=== PATIENT | female | born 2005 | race Caucasian/White ===

== ENCOUNTER 2025-09-01 15:36 | Inpatient (IN) | payer OTHER ==
[~2025-09-01] VITALS: Ht 152.4 cm; Wt 29.5 kg
[~2025-09-01 15:36] MED LIST: ACET-1439 GT; ACET160E3 GT; AMOX600S51 PO; ATRO0.06; B-650TAB2 GT; BACL10TA GT; BACL10TA2; BACL1TAB8 GT; BACLOFEN GT; BENA25CA PO; CITR1SOL PO; DULC10SU2 PR; DULCOLAX PR; KEPPRA; KEPPRA GT; LEVA0.3131; LEVA0.3131 INH; LEVA0.3131 NEB; LEVA1.2525 INH; LEVE15SO GT; LORA2CON5 GT; ONDA-228 PO; ORAPRED GT; OSEL6SUSP GT; OSEL6SUSP PO; POLYBTL GT; PRED15SO3; PYRI50TA8 GT; TYLENOL ELIXIR; XOPE0.63 INH; ZITH100S; ZITH100S OR; ZITH200S GT; clobazam GT
[2025-09-01] MEDS: NS (Normal Saline) 0.9% 1,000 ML IV ONE ×2 (16:15→17:43)
[2025-09-01 16:18] LABS: VENOUS BASE EXCESS -1.6 (-2.0-2.0); VENOUS HCO3 22.3 MMOL/L (23.0-27.0); VENOUS O2 SATURATION 96.2 % (60.0-80.0); VENOUS PARTIAL PRESSURE CO2 35.3 mmHg (38.0-50.0); VENOUS PARTIAL PRESSURE O2 83.6 mmHg (30.0-50.0); VENOUS PH 7.418 UNITS (7.330-7.430); VENOUS STANDARD HCO3 23.1 MMOL/L; VENOUS TOTAL CO2 23.4 MMOL/L (24.0-28.0)
[2025-09-01 16:26] LABS: BASO # 0.1 10^3/uL (0.0-0.2); BASO % 0.5 % (0.0-1.0); EOS # 0.2 10^3/uL (0.0-0.5); EOS % 0.7 % (0.0-3.0); LYMPH # 0.8 10^3/uL (1.5-5.0); LYMPH % 3.2 % (24.0-44.0); MONO # 1.4 10^3/uL (0.0-0.8); MONO % 5.2 % (2.0-8.0); NEUTROPHILS # 23.6 10^3/uL (1.5-8.5); NEUTROPHILS % 89.9 % (36.0-66.0); PLATELET COUNT, AUTOMATED 483 10^3/uL (150-450)
[2025-09-01 16:46] LABS: C REACTIVE PROTEIN QUANTITATIV 0.57 MG/DL (<1.0)
[2025-09-01 16:58] LABS: ALT/SGPT 28 U/L (7.0-40); AST/SGOT 76 U/L (<34); CALCIUM LEVEL 9.8 MG/DL (8.5-10.1); CARBON DIOXIDE LEVEL 24 MMOL/L (20-31); CHLORIDE LEVEL 100 MMOL/L (98-107); CREATININE FOR GFR 0.45 MG/DL (0.55-1.30); GLOMERULAR FILTRATION RATE > 90.0 (>60); POTASSIUM SERUM 4.9 MMOL/L (3.5-5.1); SODIUM LEVEL 138 MMOL/L (136-145)
[2025-09-01] MEDS ORDERED: DANT50CA PO (17:08)
[2025-09-01] MEDS: BACLOFEN 10 MG TAB PO ONE (17:15)
[2025-09-01] MEDS ORDERED: DANTROLENE 25 MG CAP PO SCH (17:15)
[2025-09-01] MEDS ORDERED: levETIRAcetam ORAL SOLUTION 500 MG/5 ML UDC GT SCH (17:15)
[2025-09-01 17:19] LABS: KETONE, URINE AUTO RFX NEGATIVE (NEGATIVE); LEUKOCYTE ESTERASE UR AUTO RFX NEGATIVE (NEGATIVE); MUCUS, URINE RFX SMALL (NEGATIVE); NITRITE, URINE AUTO RFX NEGATIVE (NEGATIVE); RBC, URINE AUTO RFX 36 /HPF (0-3); SQUAM EPITHELIAL CELL UR AURFX 1 /HPF (0-6); WBC, URINE AUTO RFX 2 /HPF (0-3)
[2025-09-01] MEDS: ACETAMINOPHEN *IV* 500 MG in IV 1 EA IV ONE (17:42)
[2025-09-01] MEDS: DANTROLENE 25 MG CAP GT SCH (17:48)
[2025-09-01] MEDS: BACLOFEN 10 MG TAB GT SCH (17:48)
[2025-09-01] MEDS: levETIRAcetam ORAL SOLUTION 500 MG/5 ML UDC GT SCH (17:49)
[2025-09-01] MEDS: IBUPROFEN 100 MG 5 ML SUSP UDC DYE FREE PO ONE (17:52)
[2025-09-01] MEDS: PIPERACILLIN/TAZOBACTAM SOD 3.375 GM in DEXTROSE 5% (D5W) ADV/MINI-BAG 50 ML IV ONE (17:52)
[2025-09-01] MEDS ORDERED: [UNRECOGNIZED DRUG - CODE] GT (18:46)
[2025-09-01] MEDS ORDERED: MED REC COMMENT (18:46)
[2025-09-01] MEDS ORDERED: MIDA5SPR NS (18:48)
[2025-09-01] MEDS ORDERED: HOME MED LIST COMPLETE! XX SCH (18:50)
[2025-09-01] MEDS ORDERED: ACETAMINOPHEN 325 MG/10.15 ML UDC GT PRN (19:00)
[2025-09-01] MEDS ORDERED: MOM 30 ML SUSPENSION UDC PO PRN (19:00)
[2025-09-01] MEDS: NS (Normal Saline) 0.9% 1,000 ML IV SCH (19:48)
[2025-09-01] MEDS: DOXYCYCLINE HYCLATE 100 MG in DEXTROSE 5% (D5W) MINI-BAG PLU 100 ML IV SCH (21:35)
[2025-09-02 00:33] VITALS: BP 128/65; TEMP 97.8; O2SAT 99
[2025-09-02] MEDS: PIPERACILLIN/TAZOBACTAM SOD 3.375 GM in DEXTROSE 5% (D5W) ADV/MINI-BAG 50 ML IV SCH (01:21)
[2025-09-02 03:28] VITALS: BP 128/77; TEMP 100.1; O2SAT 98
[2025-09-02 06:00] VITALS: TEMP 100
[2025-09-02 06:10] LABS: PLATELET COUNT, AUTOMATED 320 10^3/uL (150-450)
[2025-09-02 06:38] LABS: ALT/SGPT 33 U/L (7.0-40); AST/SGOT 72 U/L (<34); CALCIUM LEVEL 9.2 MG/DL (8.5-10.1); CARBON DIOXIDE LEVEL 20 MMOL/L (20-31); CHLORIDE LEVEL 108 MMOL/L (98-107); CREATININE FOR GFR 0.34 MG/DL (0.55-1.30); GLOMERULAR FILTRATION RATE > 90.0 (>60); MAGNESIUM LEVEL 1.9 MG/DL (1.8-2.4); POTASSIUM SERUM 4.1 MMOL/L (3.5-5.1); SODIUM LEVEL 143 MMOL/L (136-145)
[2025-09-02 07:37] VITALS: BP 102/54; TEMP 99.7; O2SAT 92
[2025-09-02] MEDS ORDERED: GLUCAGON INJ 1 MG VIAL SC PRN (08:45)
[2025-09-02] MEDS ORDERED: DEXTROSE 50% 50 ML SYRINGE IV PRN (08:45)
[2025-09-02] MEDS ORDERED: GLUCOSE 4 GM CHEW PO PRN (08:45)
[2025-09-02] MEDS: BISACODYL 10 MG SUPP PR SCH (09:00)
[2025-09-02] MEDS ORDERED: ISOVUE-370 76% 100 ML VIAL As Ordered ONE (09:01)
[2025-09-02] MEDS: D5W/0.45% SODIUM CHLORIDE 1,000 ML IV SCH (10:34)
[2025-09-02] MEDS: levETIRAcetam ORAL SOLUTION 500 MG/5 ML UDC GT SCH (10:56)
[2025-09-02] MEDS: DANTROLENE 25 MG CAP GT SCH (10:57)
[2025-09-02] MEDS: SENNOSIDES/DOCUSATE SODIUM 8.6 MG/50MG TAB GT SCH (10:57)
[2025-09-02] MEDS: BACLOFEN 10 MG TAB GT SCH (10:57)
[2025-09-02] MEDS: ENOXAPARIN 30 MG/0.3 ML SYRINGE (J1650 PER 10MG) SC SCH (10:58)
[2025-09-02 11:27] VITALS: BP 113/66; TEMP 100.1; O2SAT 97
[2025-09-02 15:36] LABS: CA 125 37.0 U/ML (<35)
[2025-09-02] MEDS: LACOSAMIDE 10 MG/ML 20 ML VIAL IV SCH (17:32)
[2025-09-02 19:41] VITALS: BP 123/65; TEMP 99.4; O2SAT 95
[2025-09-03] VITALS (7 sets, daily range): BP systolic 99–120; BP diastolic 56–76; TEMP 97.5–98.3; O2SAT 95–98
[2025-09-03 06:14] LABS: BASO # 0.1 10^3/uL (0.0-0.2); BASO % 1.1 % (0.0-1.0); EOS # 0.7 10^3/uL (0.0-0.5); EOS % 9.6 % (0.0-3.0); LYMPH # 2.2 10^3/uL (1.5-5.0); LYMPH % 30.6 % (24.0-44.0); MONO # 0.5 10^3/uL (0.0-0.8); MONO % 7.3 % (2.0-8.0); NEUTROPHILS # 3.7 10^3/uL (1.5-8.5); NEUTROPHILS % 51.3 % (36.0-66.0); PLATELET COUNT, AUTOMATED 380 10^3/uL (150-450)
[2025-09-03 06:36] LABS: CALCIUM LEVEL 9.5 MG/DL (8.5-10.1); CARBON DIOXIDE LEVEL 23 MMOL/L (20-31); CHLORIDE LEVEL 106 MMOL/L (98-107); CREATININE FOR GFR 0.47 MG/DL (0.55-1.30); GLOMERULAR FILTRATION RATE > 90.0 (>60); POTASSIUM SERUM 4.3 MMOL/L (3.5-5.1); SODIUM LEVEL 141 MMOL/L (136-145)
[2025-09-03] MEDS: LACOSAMIDE 50 MG TAB GT SCH (11:28)
[2025-09-03] MEDS: AUGMENTIN BID 400 MG/5 ML SUSP 50 ML BTL GT SCH (20:39)
[2025-09-03] MEDS: DOXYCYCLINE HYCLATE 100 MG TABLET GT SCH (20:40)
[2025-09-03] MEDS: ONDANSETRON 4MG/2ML VIAL IV ONE (23:29)
[2025-09-04 04:17] VITALS: BP 96/61; TEMP 97.6; O2SAT 99
[2025-09-04 06:25] LABS: PLATELET COUNT, AUTOMATED 305 10^3/uL (150-450)
[2025-09-04 07:27] VITALS: BP 116/59; TEMP 97.3; O2SAT 98
[2025-09-04 11:28] VITALS: BP 127/78; TEMP 96.9; O2SAT 99
[2025-09-04] MEDS ORDERED: VIMP50TA3 GT (12:28)
[2025-09-04] MEDS ORDERED: AMOX875T2 GT (12:28)
[2025-09-04] MEDS ORDERED: DOXY100C3 GT (12:28)
[2025-09-04] MEDS ORDERED: LACO10SO GT (12:47)
== END 2025-09-04 14:12 | disposition home or self-care (01) | DRG 101 ==
LOC: M ED 15:36 → M ED INP 18:59 → M PCU 09-02 00:23
PROVIDERS: ADMIT Internal Medicine; ATTEND Internal Medicine
DX: G40.909 Epilepsy, unspecified, not intractable, without status epilepticus (principal); R65.10 Systemic inflammatory response syndrome (SIRS) of non-infectious origin without acute organ dysfunction; G80.1 Spastic diplegic cerebral palsy; Z93.1 Gastrostomy status; K59.00 Constipation, unspecified; R13.12 Dysphagia, oropharyngeal phase; N83.8 Other noninflammatory disorders of ovary, fallopian tube and broad ligament; L89.222 Pressure ulcer of left hip, stage 2; Z79.899 Other long term (current) drug therapy